=== PATIENT | male | born 1980 | race African-American/Black ===

== ENCOUNTER 2018-09-07 15:08 | Inpatient (IN) | payer OTHER ==
[2018-09-07 18:06] VITALS: BMI 25.5
--- NOTE | 2018-09-07 19:44 | HP ---
"CIWA Score - CIWA Score Nausea/Vomitin-No Nausea/No Vomiting Muscle Tremors: 3 (Visible) Anxiety: 1-Mildly Anxious Agitation: 1-Slight > Activity Paroxysmal Sweats: 3 (Facial moisture.) Orientation: 1-Uncertain about Date Tacttile Disturbances: 0-None Auditory Disturbances: 0-None Visual Disturbances: 0-None Headache: 0-None Present CIWA-Ar Total Score: 9 Admission ROS S - HPI Chief Complaint: Here for alcohol withdrawal. Allergies/Adverse Reactions: Allergies Allergy/AdvReac Type Severity Reaction Status Date / Time coconut Allergy Severe Hives Verified 09/07/18 18:51 tomato Allergy Severe Hives Verified 09/07/18 18:51 No Known Drug Allergies Allergy Verified 09/07/18 18:51 History of Present Illness: Alcohol use began at age 5. Cocaine use began at age 18. Marijuana use began at age 14. Nicotine use began at age 10. Tried methamphetamine but didn't like. Denies hx seizures or blackouts. States was able to maintain sobriety for 2 years. Hx HTN. Denies other significant PMH/PSH. Search Terms: Abel Gordillo, 1980 Search Date: 09/07/2018 07:33:37 PM The Drug Utilization Report below displays all of the controlled substance prescriptions, if any, that your patient has filled in the last twelve months. The information displayed on this report is compiled from pharmacy submissions to the Department, and accurately reflects the information as submitted by the pharmacies. This report was requested by: Jennifer Marinelli | Reference #: [id number] There are no results for the search terms that you entered. Exam Limitations: No Limitations - Ebola screening Have you traveled outside of the country in the last 21 days: No Have you had contact with anyone from an Ebola affected area: No Have you been sick,other than usual withdrawal symptoms: No Do you have a fever: No - Review of Systems Constitutional: Changes in sleep (Difficulty staying asleep) EENT: reports: Blurred Vision (Wears glasses), Dental Problems (Missing and broken teeth. Chews and swallows okay.) Respiratory: reports: Cough (Cough x a few days. Denies chest pain, SOB.) Cardiac: reports: Other (Hx HTN - on Amlodopine. Last taken 09/06.) GI: reports: No Symptoms Reported : reports: No Symptoms Reported Musculoskeletal: reports: No Symptoms Reported Integumentary: reports: No Symptoms Reported Neuro: reports: Tremors (r/t withdrawal) Endocrine: reports: No Symptoms Reported Hematology: reports: No Symptoms Reported Psychiatric: reports: Judgement Intact, Anxious, Depressed (Denies thoughts of harming self or others) Patient History - Patient Medical History Hx Anemia: No Hx Asthma: No Hx Chronic Obstructive Pulmonary Disease (COPD): No Hx Cancer: No Hx Cardiac Disorders: No Hx Congestive Heart Failure: No Hx Hypertension: Yes Hx Hypercholesterolemia: No Hx Pacemaker: No HX Cerebrovascular Accident: No Hx Seizures: No Hx Dementia: No Hx Diabetes: No Hx Gastrointestinal Disorders: No Hx Liver Disease: No Hx Genitourinary Disorders: No Hx Sexually Transmitted Disorders: No Hx Renal Disease (ESRD): No Hx Thyroid Disease: No Hx Human Immunodeficiency Virus (HIV): No (2018 - neg) Hx Hepatitis C: No Hx Depression: Yes (States given seroquel in ER 1 month ago. Denies S/) Hx Suicide Attempt: No Hx Bipolar Disorder: Yes Hx Schizophrenia: No - Patient Surgical History Past Surgical History: No Hx Neurologic Surgery: No Hx Cataract Extraction: No Hx Cardiac Surgery: No Hx Lung Surgery: No Hx Breast Surgery: No Hx Breast Biopsy: No Hx Abdominal Surgery: No Hx Appendectomy: No Hx Cholecystectomy: No Hx Genitourinary Surgery: No Hx Section: No Hx Orthopedic Surgery: No Anesthesia Reaction: No - PPD History Previous Implant?: Yes Documented Results: Positive w/proof (Last C[facility]XRAY @ [facility] 01/2015 - negative) Implanted On Prior [facility] Admission?: No PPD to be Administered?: No - Smoking Cessation Smoking history: Current every day smoker Have you smoked in the past 12 months: Yes Aproximately how many cigarettes per day: 7 Hx Chewing Tobacco Use: No Initiated information on smoking cessation: Yes 'Breaking Loose' booklet given: 09/07/18 - Substance & Tx. History Hx Alcohol Use: Yes Hx Substance Use: Yes Substance Use Type: Alcohol, Cocaine, Marijuana Hx Substance Use Treatment: Yes (detox, out-patient) - Substances Abused Alcohol Route: Oral Frequency: Daily Amount used: liquor- 3 pints, beer- 2 six pack Age of first use: 5 Date of Last Use: 09/07/18 Cocaine Route: Inhalation Frequency: Daily Amount used: 3 bags Age of first use: 18 Date of Last Use: 09/06/18 Marijuana/Hashish Route: Smoking Frequency: 1-2 times per week Amount used: 3 bags Age of first use: 14 Date of Last Use: 09/07/18 Family Disease History - Family Disease History Family Disease History: Diabetes: Mother (asthma, alcohol and drug use ), Respiratory: Mother, Other: Mother Admission Physical Exam [facility] - Vital Signs Vital Signs: Vital Signs - 24 hr 09/07/18 18:03 Temperature 98.3 F Pulse Rate 80 Respiratory 18 Rate Blood Pressure 136/81 - Physical General Appearance: Yes: Mild Distress, Tremorous, Sweating (Facial moisture.), Anxious HEENTM: Yes: EOMI, Hearing grossly Normal, Normal Voice, SABRA, Other (Decreased moisture of mucous membranes. 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 NML intact, Fully Oriented, Alert, Motor Strength 5/5, Normal Mood/Affect Integumentary: Yes: Normal Color, Dry (Decreased skin turgor), Warm Lymphatic: Yes: Within Normal Limits - Diagnostic (1) Alcohol dependence with uncomplicated withdrawal Current Visit: Yes Status: Acute (2) Cannabis dependence, uncomplicated Current Visit: Yes Status: Chronic (3) Cocaine dependence, uncomplicated Current Visit: Yes Status: Chronic (4) Dehydration Current Visit: Yes Status: Acute (5) Nicotine dependence, uncomplicated Current Visit: Yes Status: Acute Qualifiers: Nicotine product type: cigarettes Qualified Code(s): F17.210 - Nicotine dependence, cigarettes, uncomplicated (6) Hypertension Current Visit: Yes Status: Acute Qualifiers: Hypertension type: essential hypertension Qualified Code(s): I10 - Essential (primary) hypertension (7) Cough Current Visit: Yes Status: Acute Cleared for Admission [facility] - Detox or Rehab [facility] Level of Care: Medically Supervised Detox Regimen/Protocol: Librium [facility] Breath Alcohol Content Breath Alcohol Content: 0 Urine Drug Screen - Results Drug Screen Negative: No Urine Drug Screen Results: THC-Marijuana, STEVEN-Cocaine, MET-Methamphetamine"
[2018-09-07] MEDS ORDERED: chlordiazePOXIDE HCL 25 MG CAPSULE PO ONE (20:07)
[2018-09-07] MEDS ORDERED: chlordiazePOXIDE HCL 25 MG CAPSULE PO PRN (20:07)
[2018-09-07] MEDS ORDERED: MAGNESIUM HYDROX 2400MG/30ML ORAL SUSPENSION 30 ML CUP PO PRN (20:07)
[2018-09-07] MEDS ORDERED: P-EPHED 60MG/TRIPROLIDI 2.5MG TABLET PO PRN (20:07)
[2018-09-07] MEDS ORDERED: MAG HYDROX/AL HYDROX/SIMETH 30 ML UNIT-DOSE CUP PO PRN (20:07)
[2018-09-07] MEDS ORDERED: IBUPROFEN 400 MG TABLET (FP) PO PRN (20:07)
[2018-09-07] MEDS ORDERED: ACETAMINOPHEN 325 MG TABLET (FP) PO PRN (20:07)
[2018-09-07] MEDS ORDERED: MAGNESIUM CITRATE 300 ML BOTTLE PO PRN (20:07)
[2018-09-07] MEDS ORDERED: NICOTINE POLACRILEX 2 MG GUM BUC PRN (20:07)
[2018-09-07] MEDS ORDERED: MENTHOL/PHENOL 1 EACH UD MM PRN (20:07)
[2018-09-07] MEDS ORDERED: LOPERAMIDE HCL 2 MG CAPSULE PO PRN (20:07)
[2018-09-07] MEDS: chlordiazePOXIDE HCL 25 MG CAPSULE PO SCH (22:39)
[2018-09-07] MEDS: THIAMINE HCL 100 MG TABLET (FP) PO SCH (22:39)
[2018-09-07] MEDS: MELATONIN 5 MG TABLETS PO PRN (22:40)
[2018-09-08 00:33] LABS: URINE APPEARANCE CLEAR; URINE BILIRUBIN NEGATIVE (<2.0 mg/dL); URINE COLOR YELLOW; URINE GLUCOSE (UA) NEGATIVE (NEGATIVE); URINE KETONE NEGATIVE (NEGATIVE); URINE LEUK ESTERASE NEGATIVE (NEGATIVE); URINE NITRITE NEGATIVE (NEGATIVE); URINE PROTEIN NEGATIVE (NEGATIVE); URINE UROBILINOGEN NEGATIVE mg/dL (0.2-1.0)
[2018-09-08] MEDS: chlordiazePOXIDE HCL 25 MG CAPSULE PO SCH ×4 (06:36→23:22)
--- NOTE | 2018-09-08 08:19 | CONSULT ---
[facility] Psychiatric Consult - Data Date of interview: 09/08/18 Admission source: [facility] Identifying data: This is 38 years old male, single, father of two, unemployed, living at prison, onPA support, with psychiatric hospitalization history, history of PTSD, reports long chronic history of Alcohol, Cocaine, Cannabis and Nicotine dependence. Denies suicidal, homicidal history. Substance Abuse History: Alcohol use began at age 5. Cocaine use began at age 18. Marijuana use began at age 14. Nicotine use began at age 10. Smoking history: Current every day smoker. Have you smoked in the past 12 months: Yes. Aproximately how many cigarettes per day: 7. Hx Chewing Tobacco Use: No. Initiated information on smoking cessation: Yes. 'Breaking Loose' booklet given : 09/07/18. - Substance & Tx. History. Hx Alcohol Use: Yes. Hx Substance Use : Yes. Substance Use Type: Alcohol, Cocaine, Marijuana. Hx Substance Use Treatment: Yes (detox, out-patient). - Substances Abused. Alcohol. Route: Oral. Frequency: Daily. Amount used: liquor- 3 pints, beer- 2 six pack. Age of first use: 5. Date of Last Use: 09/07/18. Cocaine. Route: Inhalation. Frequency: Daily. Amount used: 3 bags. Age of first use: 18. Date of Last Use : 09/06/18. Marijuana/Hashish. Route: Smoking. Frequency: 1-2 times per week. Amount used: 3 bags. Age of first use: 14. Date of Last Use: 09/07/18 Medical History: HTN, denies other significant medial p[roblem. Psychiatric History: Patient reports history of PTSD, DEPRESSION AND ANXIETY, REPORTS UNCLEAR PSYCHIATRIC ADSMISSION ON MORE THENN 10M YEARS AGO, DENIES SUICIDAL, HOMICIDAL HISTORY, REPORTS TAKING PRIORM TO ADMISSION: Seroquel 100mg po qhs. Zoloft 100mg poqd Physical/Sexual Abuse/Trauma History: Denies Additional Comment: Seroquel 100mg po qhs. Zoloft 100mg poqd Mental Status Exam - Mental Status Exam Alert and Oriented to: Person Cognitive Function: Fair Patient Appearance: Unkempt Mood: Sad Affect: Flat Patient Behavior: Cooperative Speech Pattern: Delayed Voice Loudness: Mildly Soft/Quiet Thought Process: Circumstantial Thought Disorder: Being Controlled Hallucinations: Denies Suicidal Ideation: Denies Homicidal Ideation: Denies Insight/Judgement: Fair Sleep: Difficulty falling asleep Appetite: Weight loss Muscle strength/Tone: Moderate Hypertonicity Gait/Station: Shuffling Additional Comments: Seroquel 100mg po qhs. Zoloft 100mg poqd Psychiatric Findings - Problem List ([place] 1, 2,3) (1) Alcohol dependence with uncomplicated withdrawal Current Visit: Yes Status: Acute (2) Hypertension Current Visit: Yes Status: Acute Qualifiers: Hypertension type: essential hypertension Qualified Code(s): I10 - Essential (primary) hypertension (3) Nicotine dependence, uncomplicated Current Visit: Yes Status: Acute Qualifiers: Nicotine product type: cigarettes Qualified Code(s): F17.210 - Nicotine dependence, cigarettes, uncomplicated (4) Cannabis dependence, uncomplicated Current Visit: Yes Status: Chronic (5) Cocaine dependence, uncomplicated Current Visit: Yes Status: Chronic (6) Alcohol dependence Current Visit: No Status: Acute (7) Cocaine dependence Current Visit: No Status: Acute (8) History of posttraumatic stress disorder (PTSD) Current Visit: No Status: Acute - Initial Treatment Plan Initial Treatment Plan: Seroquel 100mg po qhs. Zoloft 100mg poqd
[2018-09-08] MEDS ORDERED: SERTRALINE HCL PO SCH (10:00)
[2018-09-08] MEDS: PRENATAL VITAMINS W/ FOLIC ACID TABLET (FP) PO SCH (11:00)
[2018-09-08] MEDS: NICOTINE 14 MG/24 HOURS TOPICAL PATCH TD SCH (11:00)
[2018-09-08] MEDS: SERTRALINE HCL 50 MG TABLET (FP) PO SCH (11:00)
[2018-09-08] MEDS: amLODIPine BESYLATE 10 MG TABLET (FP) PO SCH (11:01)
--- NOTE | 2018-09-08 11:29 | EKG ---
Test Reason : Blood Pressure : / mmHG Vent. Rate : 080 BPM Atrial Rate : 080 BPM P-R Int : 178 ms QRS Dur : 086 ms QT Int : 368 ms P-R-T Axes : 040 012 023 degrees QTc Int : 424 ms NORMAL SINUS RHYTHM NORMAL ECG NO PREVIOUS ECGS AVAILABLE Confirmed by KERRY PUGH, LAKESHA ([id number]) on 09/08/2018 11:28:44 AM Referred By: Confirmed By:LAKESHA PAYNE MD
--- NOTE | 2018-09-08 12:32 | PN ---
S CIWA - CIWA Score Nausea/Vomitin-No Nausea/No Vomiting Muscle Tremors: 3 Anxiety: 3 Agitation: 2 Paroxysmal Sweats: 3 Orientation: 0-Oriented Tacttile Disturbances: 0-None Auditory Disturbances: 0-None Visual Disturbances: 0-None Headache: 0-None Present CIWA-Ar Total Score: 11 BHS Progress Note (SOAP) Subjective: interrupted sleep agitation sweats body aches Objective: 09/08/18 12:31 Vital Signs Temperature 98.1 F 09/08/18 09:33 Pulse Rate 79 09/08/18 09:33 Respiratory Rate 19 09/08/18 09:33 Blood Pressure 142/99 09/08/18 09:33 O2 Sat by Pulse Oximetry (%) Laboratory Tests 09/07/18 23:03 Urine Color Yellow Urine Appearance Clear Urine pH 6.0 Ur Specific [place] 1.024 Urine Protein Negative Urine Glucose (UA) Negative Urine Ketones Negative Urine Blood Negative Urine Nitrite Negative Urine Bilirubin Negative Urine Urobilinogen Negative Ur Leukocyte Esterase Negative rest of labs pending aaox3 ambulating no acute distress Assessment: 09/08/18 12:31 withdrawal sx Plan: continue detox increase fluids labs pending
[2018-09-08 14:22] LABS: HEMATOCRIT 44.3 % (35.4-49); MCH 28.2 pg (25.7-33.7); MCHC 31.6 g/dl (32.0-35.9); MEAN CELL VOLUME 89.2 fl (80-96); MEAN PLT VOLUME 7.6 fl (7.5-11.1); PLATELET COUNT 247 K/MM3 (134-434); RBC 4.96 M/mm3 (4.00-5.60); RDW 13.1 % (11.9-15.9); WHITE BLOOD COUNT 5.6 K/mm3 (4.0-10.0)
[2018-09-08 15:14] LABS: ALK PHOS 54 U/L (45-117); ANION GAP 9 MMOL/L (8-16); BILIRUBIN,TOTAL 0.2 mg/dL (0.2-1); BLOOD UREA NITROGEN 11 mg/dL (7-18); CALCIUM 9.1 mg/dL (8.5-10.1); CHLORIDE 105 mmol/L (98-107); CO2 26 mmol/L (21-32); CREATININE 0.9 mg/dL (0.55-1.3); GLUCOSE,RANDOM 108 mg/dL (74-106); POTASSIUM 4.2 mmol/L (3.5-5.1); SGOT/AST 18 U/L (15-37); SGPT/ALT 27 U/L (13-61); SODIUM 140 mmol/L (136-145); TOT PROT 6.1 g/dl (6.4-8.2)
[2018-09-08] MEDS ORDERED: QUEtiapine FUMARATE 300 MG TABLET PO SCH (22:00)
[2018-09-08] MEDS: QUEtiapine FUMARATE 100 MG TABLET (FP) PO SCH (23:23)
[2018-09-08] MEDS: THIAMINE HCL 100 MG TABLET (FP) PO SCH (23:23)
[2018-09-09] MEDS: chlordiazePOXIDE HCL 25 MG CAPSULE PO SCH ×3 (05:51→18:53)
[2018-09-09] MEDS: NICOTINE 14 MG/24 HOURS TOPICAL PATCH TD SCH (10:13)
[2018-09-09] MEDS: SERTRALINE HCL 50 MG TABLET (FP) PO SCH (10:13)
[2018-09-09] MEDS: PRENATAL VITAMINS W/ FOLIC ACID TABLET (FP) PO SCH (10:13)
[2018-09-09] MEDS: amLODIPine BESYLATE 10 MG TABLET (FP) PO SCH (10:13)
[2018-09-09] MEDS: guaiFENesin 200 MG/10 ML 10 ML UNIT-DOSE CUPS PO PRN (10:16)
--- NOTE | 2018-09-09 10:31 | PN ---
[facility] CIWA - CIWA Score Nausea/Vomitin-No Nausea/No Vomiting Muscle Tremors: 3 Anxiety: 2 Agitation: 3 Paroxysmal Sweats: 2 Orientation: 0-Oriented Tacttile Disturbances: 0-None Auditory Disturbances: 0-None Visual Disturbances: 0-None Headache: 0-None Present CIWA-Ar Total Score: 10 S Progress Note (SOAP) Subjective: little sweats interrupted sleep anxiety Objective: 09/09/18 10:30 Vital Signs Temperature 97.9 F 09/09/18 09:53 Pulse Rate 75 09/09/18 09:53 Respiratory Rate 18 09/09/18 09:53 Blood Pressure 122/75 09/09/18 09:53 O2 Sat by Pulse Oximetry (%) Laboratory Tests 09/07/18 09/08/18 09/08/18 23:03 07:00 07:00 WBC 5.6 RBC 4.96 Hgb 14.0 Hct 44.3 MCV 89.2 MCH 28.2 MCHC 31.6 L RDW 13.1 Plt Count 247 D MPV 7.6 Sodium 140 Potassium 4.2 Chloride 105 Carbon Dioxide 26 Anion Gap 9 BUN 11 Creatinine 0.9 Creat Clearance w eGFR > 60 Random Glucose 108 H Calcium 9.1 Total Bilirubin 0.2 AST 18 ALT 27 Alkaline Phosphatase 54 Total Protein 6.1 L Albumin 3.0 L Urine Color Yellow Urine Appearance Clear Urine pH 6.0 Ur Specific [place] 1.024 Urine Protein Negative Urine Glucose (UA) Negative Urine Ketones Negative Urine Blood Negative Urine Nitrite Negative Urine Bilirubin Negative Urine Urobilinogen Negative Ur Leukocyte Esterase Negative RPR Titer 09/08/18 07:00 WBC RBC Hgb Hct MCV MCH MCHC RDW Plt Count MPV Sodium Potassium Chloride Carbon Dioxide Anion Gap BUN Creatinine Creat Clearance w eGFR Random Glucose Calcium Total Bilirubin AST ALT Alkaline Phosphatase Total Protein Albumin Urine Color Urine Appearance Urine pH Ur Specific Protem Urine Protein Urine Glucose (UA) Urine Ketones Urine Blood Urine Nitrite Urine Bilirubin Urine Urobilinogen Ur Leukocyte Esterase RPR Titer Nonreactive aaox3 ambulating no acute distress Assessment: 09/09/18 10:30 withdrawal sx Plan: continue detox increase fluids
[2018-09-09] MEDS: THIAMINE HCL 100 MG TABLET (FP) PO SCH (22:51)
[2018-09-09] MEDS: QUEtiapine FUMARATE 100 MG TABLET (FP) PO SCH (22:51)
[2018-09-09] MEDS: chlordiazePOXIDE 5 MG CAPSULE PO SCH (22:52)
[2018-09-10] MEDS: chlordiazePOXIDE 5 MG CAPSULE PO SCH ×3 (05:13→18:16)
[2018-09-10] MEDS: guaiFENesin 200 MG/10 ML 10 ML UNIT-DOSE CUPS PO PRN (05:16)
--- NOTE | 2018-09-10 10:25 | PN ---
B[facility] Progress Note (SOAP) Subjective: feeling much better little sweats Objective: 09/10/18 10:24 Vital Signs Temperature 97.8 F 09/10/18 09:23 Pulse Rate 96 H 09/10/18 09:23 Respiratory Rate 18 09/10/18 09:23 Blood Pressure 136/78 09/10/18 09:23 O2 Sat by Pulse Oximetry (%) aaox3 ambulating no acute distress Assessment: 09/10/18 10:24 mild withdrawal sx Plan: continue detox increase fluids d/c in am
[2018-09-10] MEDS: NICOTINE 14 MG/24 HOURS TOPICAL PATCH TD SCH (11:00)
[2018-09-10] MEDS: SERTRALINE HCL 50 MG TABLET (FP) PO SCH (11:00)
[2018-09-10] MEDS: amLODIPine BESYLATE 10 MG TABLET (FP) PO SCH (11:00)
[2018-09-10] MEDS: PRENATAL VITAMINS W/ FOLIC ACID TABLET (FP) PO SCH (11:00)
[2018-09-10] MEDS: THIAMINE HCL 100 MG TABLET (FP) PO SCH (22:27)
[2018-09-10] MEDS: QUEtiapine FUMARATE 100 MG TABLET (FP) PO SCH (22:27)
[2018-09-10] MEDS: chlordiazePOXIDE HCL 10 MG CAPSULE PO SCH (22:27)
[2018-09-11] MEDS: chlordiazePOXIDE HCL 10 MG CAPSULE PO SCH ×3 (05:17→17:10)
[2018-09-11] MEDS: guaiFENesin 200 MG/10 ML 10 ML UNIT-DOSE CUPS PO PRN (05:19)
[2018-09-11] MEDS: amLODIPine BESYLATE 10 MG TABLET (FP) PO SCH (10:23)
[2018-09-11] MEDS: PRENATAL VITAMINS W/ FOLIC ACID TABLET (FP) PO SCH (10:23)
[2018-09-11] MEDS: SERTRALINE HCL 50 MG TABLET (FP) PO SCH (10:23)
[2018-09-11] MEDS: NICOTINE 14 MG/24 HOURS TOPICAL PATCH TD SCH (10:25)
--- NOTE | 2018-09-11 15:18 | PN ---
BHS Progress Note (SOAP) Subjective: C/o still having shakes, but feeling a bit better. Objective: A&O x 3. Mild tremors of hands noted. Vital Signs 09/11/18 14:04 Temperature 97.7 F Pulse Rate 84 Respiratory 18 Rate Blood Pressure 122/73 Lab Results WBC 5.6 K/mm3 (4.0-10.0) 09/08/18 07:00 RBC 4.96 M/mm3 (4.00-5.60) 09/08/18 07:00 Hgb 14.0 GM/dL (11.7-16.9) 09/08/18 07:00 Hct 44.3 % (35.4-49) 09/08/18 07:00 MCV 89.2 fl (80-96) 09/08/18 07:00 MCHC 31.6 g/dl (32.0-35.9) L 09/08/18 07:00 RDW 13.1 % (11.9-15.9) 09/08/18 07:00 Plt Count 247 K/MM3 (134-434) D 09/08/18 07:00 Sodium 140 mmol/L (136-145) 09/08/18 07:00 Potassium 4.2 mmol/L (3.5-5.1) 09/08/18 07:00 Chloride 105 mmol/L (98-107) 09/08/18 07:00 Carbon Dioxide 26 mmol/L (21-32) 09/08/18 07:00 Anion Gap 9 MMOL/L (8-16) 09/08/18 07:00 BUN 11 mg/dL (7-18) 09/08/18 07:00 Creatinine 0.9 mg/dL (0.55-1.3) 09/08/18 07:00 Random Glucose 108 mg/dL (74-106) H 09/08/18 07:00 Calcium 9.1 mg/dL (8.5-10.1) 09/08/18 07:00 Labs reviewed. Assessment: Withdrawal symptoms. Plan: Continue detox.
[2018-09-11] MEDS: THIAMINE HCL 100 MG TABLET (FP) PO SCH (22:31)
[2018-09-11] MEDS: QUEtiapine FUMARATE 100 MG TABLET (FP) PO SCH (22:31)
[2018-09-11] MEDS: MELATONIN 5 MG TABLETS PO PRN (22:31)
[2018-09-12] MEDS: PRENATAL VITAMINS W/ FOLIC ACID TABLET (FP) PO SCH (09:33)
[2018-09-12] MEDS: SERTRALINE HCL 50 MG TABLET (FP) PO SCH (09:33)
[2018-09-12] MEDS: amLODIPine BESYLATE 10 MG TABLET (FP) PO SCH (09:33)
[2018-09-12] MEDS: NICOTINE 14 MG/24 HOURS TOPICAL PATCH TD SCH (09:37)
--- NOTE | 2018-09-12 09:45 | DS ---
[facility] Detox Discharge Summary Admission Date: 09/07/18 Discharge Date: 09/12/18 - History Present History: Alcohol Dependence Additional Comments: 38 years old male admitted on 09/07/18 for alcohol withdrawl sx completed alcohol detox regimen tolerated well denies alcohol withdrawal sx alert oriented x 3 no acute distress aftercare [facility] - Physical Exam Results Vital Signs: Vital Signs Temperature 96.8 F L 09/12/18 07:00 Pulse Rate 68 09/12/18 07:00 Respiratory Rate 20 09/12/18 07:00 Blood Pressure 115/71 09/12/18 07:00 O2 Sat by Pulse Oximetry (%) Pertinent Admission Physical Exam Findings: alcohol chivo sx Vital Signs Temperature 97.3 F L 09/12/18 09:52 Pulse Rate 90 09/12/18 09:52 Respiratory Rate 18 09/12/18 09:52 Blood Pressure 125/82 09/12/18 09:52 O2 Sat by Pulse Oximetry (%) Laboratory Last Values WBC 5.6 K/mm3 (4.0-10.0) 09/08/18 07:00 RBC 4.96 M/mm3 (4.00-5.60) 09/08/18 07:00 Hgb 14.0 GM/dL (11.7-16.9) 09/08/18 07:00 Hct 44.3 % (35.4-49) 09/08/18 07:00 MCV 89.2 fl (80-96) 09/08/18 07:00 MCH 28.2 pg (25.7-33.7) 09/08/18 07:00 MCHC 31.6 g/dl (32.0-35.9) L 09/08/18 07:00 RDW 13.1 % (11.9-15.9) 09/08/18 07:00 Plt Count 247 K/MM3 (134-434) D 09/08/18 07:00 MPV 7.6 fl (7.5-11.1) 09/08/18 07:00 Sodium 140 mmol/L (136-145) 09/08/18 07:00 Potassium 4.2 mmol/L (3.5-5.1) 09/08/18 07:00 Chloride 105 mmol/L (98-107) 09/08/18 07:00 Carbon Dioxide 26 mmol/L (21-32) 09/08/18 07:00 Anion Gap 9 MMOL/L (8-16) 09/08/18 07:00 BUN 11 mg/dL (7-18) 09/08/18 07:00 Creatinine 0.9 mg/dL (0.55-1.3) 09/08/18 07:00 Creat Clearance w eGFR > 60 (>60) 09/08/18 07:00 Random Glucose 108 mg/dL (74-106) H 09/08/18 07:00 Calcium 9.1 mg/dL (8.5-10.1) 09/08/18 07:00 Total Bilirubin 0.2 mg/dL (0.2-1) 09/08/18 07:00 AST 18 U/L (15-37) 09/08/18 07:00 ALT 27 U/L (13-61) 09/08/18 07:00 Alkaline Phosphatase 54 U/L (45-117) 09/08/18 07:00 Total Protein 6.1 g/dl (6.4-8.2) L 09/08/18 07:00 Albumin 3.0 g/dl (3.4-5.0) L 09/08/18 07:00 Urine Color Yellow 09/07/18 23:03 Urine Appearance Clear 09/07/18 23:03 Urine pH 6.0 (5.0-8.0) 09/07/18 23:03 Ur Specific [place] 1.024 (1.010-1.035) 09/07/18 23:03 Urine Protein Negative (NEGATIVE) 09/07/18 23:03 Urine Glucose (UA) Negative (NEGATIVE) 09/07/18 23:03 Urine Ketones Negative (NEGATIVE) 09/07/18 23:03 Urine Blood Negative (NEGATIVE) 09/07/18 23:03 Urine Nitrite Negative (NEGATIVE) 09/07/18 23:03 Urine Bilirubin Negative (<2.0 mg/dL) 09/07/18 23:03 Urine Urobilinogen Negative mg/dL (0.2-1.0) 09/07/18 23:03 Ur Leukocyte Esterase Negative (NEGATIVE) 09/07/18 23:03 RPR Titer Nonreactive (NONREACTIVE) 09/08/18 07:00 lab noted - Treatment Hospital Course: Detox Protocol Followed, Detoxed Safely, Responded well, Discharged Condition Good, Rehab Referral Accepted Patient has Accepted a Rehab Referral to: [facility] [place] - Medication Discharge Medications: Ambulatory Orders Quetiapine Fumarate [Seroquel -] 100 mg PO HS 01/22/15 Sertraline HCl [Zoloft -] 150 mg PO DAILY 01/22/15 Quetiapine Fumarate [Seroquel] 100 mg PO HS #30 tablet 01/23/15 Sertraline HCl [Zoloft -] 100 mg PO DAILY #30 tablet 01/23/15 Amlodipine Besylate [Norvasc -] 1 tab PO DAILY #30 tablet 09/12/18 - Diagnosis (1) Alcohol dependence with uncomplicated withdrawal Status: Acute (2) Hypertension Status: Chronic Qualifiers: Hypertension type: essential hypertension Qualified Code(s): I10 - Essential (primary) hypertension (3) Nicotine dependence, uncomplicated Status: Acute Qualifiers: Nicotine product type: cigarettes Qualified Code(s): F17.210 - Nicotine dependence, cigarettes, uncomplicated - AMA Did Patient Leave Against Medical Advice: No
[2018-09-12 09:53] VITALS: BP 125/82; PULSE 90; TEMP 97.3
== END 2018-09-12 09:46 | disposition home or self-care (01) | DRG 774 ==
LOC: YASAS 15:08 → Y6N 19:10
PROC: HZ2ZZZZ Detoxification Services for Substance Abuse Treatment (ICD-10-PCS; principal; 2018-09-07)
DX: F10.230 Alcohol dependence with withdrawal, uncomplicated (principal); F14.20 Cocaine dependence, uncomplicated; F12.20 Cannabis dependence, uncomplicated; F17.210 Nicotine dependence, cigarettes, uncomplicated; F43.10 Post-traumatic stress disorder, unspecified; Z86.59 Personal history of other mental and behavioral disorders; F31.9 Bipolar disorder, unspecified; I10 Essential (primary) hypertension; E86.0 Dehydration; R05 Cough; Z59.0 Homelessness
CPT/HCPCS: 36415; 71046-TC-FY; 80053; 81003; 85027; 86593; 93005; 93010